=== PATIENT | male | born 1935 | race Caucasian/White ===

== ENCOUNTER 2017-09-14 05:59 | Day surgery (SDC) | payer MEDICARE, OTHER ==
[~2017-09-14] VITALS: Ht 175.3 cm; Wt 85.1 kg
[~2017-09-14 05:59] MED LIST: AMIO200 PO; APIX5TAB PO; ASPI81 PO; FLON0.053; IBUPPOW25 PO; KETO0.02 EACH EYE; LEXA10TA PO; LORA10TA7 PO; POLY99.0 OU; PROP80CA PO; TAB-TAB PO; VITA400C28 PO
[2017-09-14] MEDS ORDERED: IOHEXOL 350 MG/ML 100 ML BTL (for Cath Lab) OTHER ONE (06:00)
[2017-09-14] MEDS ORDERED: ASPIRIN 325 MG TAB PO SCH (06:30)
[2017-09-14] MEDS ORDERED: NS 1000P @30 MLS/HR (KVO) IV SCH (06:30)
[2017-09-14 06:36] VITALS: BP 148/91; PULSE 74; RESP 18; TEMP 97.6; O2SAT 100
[2017-09-14] MEDS ORDERED: APIX5TAB PO (06:52)
[2017-09-14] MEDS ORDERED: POTA-163 PO (06:52)
[2017-09-14] MEDS ORDERED: MULT-244 PO (06:52)
[2017-09-14] MEDS ORDERED: PROP80CA PO (06:52)
[2017-09-14] MEDS ORDERED: TAMS0.4C4 PO (06:52)
[2017-09-14] MEDS ORDERED: LEVI20TA PO (06:52)
[2017-09-14] MEDS ORDERED: KETO0.02 EACH EYE (06:52)
[2017-09-14] MEDS ORDERED: CLAR10CA3 PO (06:52)
[2017-09-14] MEDS ORDERED: ARTIDRO EACH EYE (06:52)
[2017-09-14] MEDS ORDERED: FURO40TA PO (06:52)
[2017-09-14] MEDS ORDERED: VITA2000 PO (06:52)
[2017-09-14] MEDS ORDERED: FLUT50SP EACH NARE (06:52)
[2017-09-14] MEDS ORDERED: LOSA50TA PO (06:52)
[2017-09-14 06:57] LABS: AUTOMATED NEUTROPHIL # 3.8 TH/MM3 (1.8-7.7); BASOPHIL % 0.5 % (0.0-2.0); EOSINOPHIL # 0.2 TH/MM3 (0-0.4); EOSINOPHIL % 2.7 % (0.0-4.0); HEMATOCRIT 45.9 % (39.0-51.0); HEMOGLOBIN 15.5 GM/DL (13.0-17.0); LYMPH % 23.5 % (9.0-44.0); LYMPHOCYTE # 1.4 TH/MM3 (1.0-4.8); MEAN CELL VOLUME 91.9 FL (80.0-100.0); MEAN CORPUSCULAR HEMOGLOBIN 31.1 PG (27.0-34.0); MEAN CORPUSCULAR HGB CONC 33.8 % (32.0-36.0); MEAN PLATELET VOLUME 8.5 FL (7.0-11.0); MONO % 9.5 % (0.0-8.0); MONOCYTE # 0.6 TH/MM3 (0-0.9); NEUT % 63.8 % (16.0-70.0); PLATELET COUNT 181 TH/MM3 (150-450); RED CELL DISTRIBUTION WIDTH 13.2 % (11.6-17.2)
[2017-09-14 07:09] LABS: PROTHROMBIN TIME - PATIENT 10.4 SEC (9.8-11.6)
[2017-09-14 07:11] LABS: BICARBONATE 27.6 MEQ/L (21.0-32.0); CALCIUM 8.8 MG/DL (8.5-10.1); CREATININE 1.52 MG/DL (0.60-1.30)
[2017-09-14] MEDS ORDERED: HEPARIN-NS/PF INJ 1,000 ML ONE (07:18)
[2017-09-14] MEDS ORDERED: MIDAZOLAM HCL 2 MG/2 ML VIAL ONE (07:30)
[2017-09-14] MEDS ORDERED: SODIUM CHLOR 0.9% 1000 ML INJ 1,000 ML IV SCH (08:34)
--- NOTE | 2017-09-14 08:35 | CATHPROC ---
[employer] HIS Report Study Information Study Number Admission Scheduled Start Study Start [id number] Sep 14 2017 5:59AM 09/14/2017 Sep 14 2017 6:49AM [place] Service Cardiac Catheterization Admit Source Facility Department Other [facility] - Beauty Director Physician and Clinical Staff Initial MD London, Edy Housekeeping Associate Nicola RN, Tk Recorder Carmela Le ,RT(R) Scrub Skyler, Emilia,BRICK SETTER OPERATOR TECH2 Procedures Performed Procedure Location (Site) Vessel Name Angiogram LV LV Ventricle Coronary Angiograms LCA Left Coronary Coronary Angiograms RCA Right Coronary Wire insertion Fem Art (right) Femoral Art Wire insertion Fem Vein (right) Femoral Vein Equipment Time Typesetting Machine Tender Description Size Mfg Part Number Used/Scraped [id number] 06:52 STEEL MALHOTRA SWAN CRISTOPHER CATHETER FR 7 Used *[id number] TRANSDUCER, TRUWAVE [id number] 06:52 STEEL MALHOTRA * Used W/STOCKCOCK *[id number] 534-676T *[id number] 534-617T *[id number] [id number] *[id number] PIGTAIL ANG. 145 INFINITI 534-652S CATHETER *[id number] 08:20 DAIG/[employer] ANGIOSEAL, FR6 VIP FR 6 Used *[id number] 06:52 Revolver BLANKET,WARM AIR CCL * Used *[id number] 06:52 Revolver PACK, CCL CUSTOM * Used *[id number] 06:52 [employer] PACER PEN, SKIN DUAL W/ RULER * Used *[id number] 07:43 [employer] MEDICAL SHEATH, FR6.5 PRELUDE 11CM FR 6.5 038ACT Used *[id number] 07:52 [employer] MEDICAL WIRE, 3MMJ .025 * Used *[id number] 06:52 [employer] MEDICAL WIRE, 3MMJ .035 180CM 180CM Used *[id number] 06:52 NAMIC MANIFOLD, 4 PORT * Used *[id number] 06:52 [employer] OMNIPAQUE, 350 MG, 150ML 150ML [id number] Used [id number] 06:52 TERUMO MEDICAL SHEATH, FR7 TERUMO (10CM) FR 7 Used *[id number] Equipment Model, Serial, Lot Number and Expiration Data Description Model Number Serial Number Lot Number Expiration Date ANGIOSEAL, FR6 [facility] [id number] 04-29-2018 History: Current Medications Medication Dosage/Unit Route Frequency Last Date/Time Taken Beta Nadia ELIQUIS History: Allergies Allergy Reaction Sulfa (Sulfonamide Antibiotics) SWELLING ragweed pollen ELLA Inhibitors History: Risk Factors Family History of Hypertension Dyslipidemia Previous ND Previous Heart Failure Premature CAD Yes No Yes No No Prior Valve Prior PCI Prior CABG Surgery No No No Cerebrovascular Peripheral Artery Chronic Lung On Dialysis Diabetes Disease Disease Disease No No No Yes No History: Stress Tests Stress or Imaging Studies Performed No History: Other Current Smoker No Labs Hgb (g/dl) Hct (%) WBC (l/cumm) Platelets (thousands) 11.60-17.00 35.00-51.00 4.00-11.00 150.00-450.00 15.5 45.9 6 181 Glucose (mg/dl) BUN (mg/dl) Creatinine (mg/dl) BUN:Creatinine (1:x) 74.00-106.00 7.00-18.00 0.50-1.30 10.00-20.00 90 29 1.5 19.3 Na (meq/l) K (meq/l) 136.00-145.00 3.50-5.10 141 4.2 INR (PTT:PT) 0.90-1.10 1 CPK-MB (ng/ML) 0.50-3.60 Not Drawn Medication Medication Total Dose (Bolus/Oral) Medication Total Dosage/Unit 1% XYLOCAINE 15 mL FENTANYL 50 mcg VERSED 1 mg Medications (Bolus/Oral) Medication Time Given Dosage/Unit Administered By Reason VERSED 09/14/2017 7:38:45 AM 1 mg Tk Petersen RN 1 mg VERSED given in lab by Tk Petersen RN in Left Antecubital via Peripheral IV. Ordered by Edy London. FENTANYL 09/14/2017 7:40:51 AM 50 mcg Tk Petersen RN 50 mcg FENTANYL given in lab by Tk Petersen RN in Left Antecubital via Peripheral IV. Ordered by Edy Somers. 1% XYLOCAINE 09/14/2017 7:41:50 AM 15 mL Edy London 15 mL 1% XYLOCAINE given in lab by Edy London in Right Groin via Subcutaneous. Ordered by Edy London. Medication (Drip) Medication Time Given Dosage/Unit Concentration/Unit Diluent (ml) Solution IV Solutions 09/14/2017 7:22:28 AM 50 mL (IV) NaCl .9 Patient arrived on IV Solutions in Left Antecubital via Peripheral IV. Pump/Drip Flow using NaCl .9. Initial Case Assessment Cardiovascular HR Rhythm NIBP Chest Pain 70 sr 143/83 0 Edema Present Skin color Skin None Normal Warm Dry Circulatory - Right Pulses Dorsalis Pedis Femoral 2 2 Scale (0,1,2,3,4,d) Circulatory - Left Pulses Dorsalis Pedis Femoral 2 2 Scale (0,1,2,3,4,d) Circulatory - Lower Extremities Color Lower Right Color Lower Left Normal Normal Neurological State Oriented to time-place- Alert Moves all extremities person Respiration - General Respiration Rate SpO2 (%) (B/min) 16 98 Final Case Assessment Cardiovascular HR Rhythm NIBP Chest Pain 70 sr 143/83 0 Edema Present Skin color Skin None Normal Warm Dry Circulatory - Right Pulses Dorsalis Pedis Femoral 2 2 Scale (0,1,2,3,4,d) Circulatory - Left Pulses Dorsalis Pedis Femoral 2 2 Scale (0,1,2,3,4,d) Circulatory - Lower Extremities Color Lower Right Color Lower Left Normal Normal Neurological State Oriented to time-place- Alert Moves all extremities person Respiration - General Respiration Rate SpO2 (%) (B/min) 16 98 Chronological Log Time Study Chronological Log 7:15:08 Patient arrived via Bed. 7:15:09 Patient Name, D.O.B, / Armband Verified By R.N. Vitals capture started with the following parameters, Patient=Adult, Interval=5 min, Initial Pr scjqxw=827 mmHg, 7:20:54 Deflation Rate=5 mmHg, Cuff placed on Left Arm 7:21:33 HR=76 bpm, BXQQ=298/83 mmhg, SpO2=99.0 %, Resp=14 B/min, Pain=0, Win=10, Roach=2 7:22:15 Consent signed by the physician and the patient and verified by the Beauty Director staff. 7:22:15 Pre-op and post- op instructions given; patient acknowledges understanding of instructions. 7:22:16 Verbal Stimulation=2 Physical Stimulation=2 Airway=2 Respiration=2 TOTAL=8. (0=absent, 1=li mited, 2=present) 7:22:18 Patient has been NPO for More than 6Hrs. 7:22:22 Skin Breakdown- none per patient 7:22: Patient Warmer Placed on the Table. 7:: Janel Prominences Protected 7:: A # 20 IV was noted in the Antecubital (left). Grade = 0 7:22:28 Patient arrived on IV Solutions in Left Antecubital via Peripheral IV. Pump/Drip Flow using NaCl .9. 7:22:29 History and physical on the chart or being dictated. Assessment: Initial Case, HR=70 BPM, Rhythm=sr, RQFW=139/83 mmhg, Chest Pain=0, Edema=None, Gallion r=Normal, Skin = Warm, Dry Right Pulses: Moris Ped=2, Femoral=2 Left Pulses: Moris Ped=2, Femoral=2 7:22:29 Lower Right Extremities: Color=Normal Lower Left Extremities: Color=Normal Neurological: State=Alert, Ox3, YOUNG Respiration: Resp=16 B/min, SpO2=98 % 7:23:31 Reference ECG taken 7:26:57 HR=71 bpm, GSFW=031/85 mmhg, SpO2=98.0 %, Resp=13 B/min, Pain=0, Win=10, Roach=2 7:28:46 Bilateral groins prepped with 2% chlorhexidine, and draped after a 3 minute waiting time. 7:30:00 MD arrived. 7:30:58 Pressure channel 1 zeroed. 7:31:34 HR=73 bpm, WJXH=758/83 mmhg, SpO2=98.0 %, Resp=20 B/min, Pain=0, Win=10, Roach=2 7:36:29 HR=76 bpm, NYXF=077/80 mmhg, SpO2=97.0 %, Resp=21 B/min, Pain=0, Win=10, Roach=2 Time Out. Correct patient, correct procedure, correct physician, labs, allergies, and equipment verified with systems testing laboratory technician 7:36:53 team present. Fire risk assesment completed (see hard stop sheet for coding). Time Out Concu rred by MD and individual staff in procedure. 7:38:45 1 mg VERSED given in lab by Tk Petersen RN in Left Antecubital via Peripheral IV. Ordered Edy Nance. 7:40:51 50 mcg FENTANYL given in lab by Tk Petersen RN in Left Antecubital via Peripheral IV. Order ed by Edy London. 7:41:19 Case Start 7:41:30 HR=73 bpm, IZOB=511/93 mmhg, SpO2=98.0 %, Resp=12 B/min, Pain=0, Win=10, Roach=2 7:41:50 15 mL 1% XYLOCAINE given in lab by Edy London in Right Groin via Subcutaneous. Ordered by Edy London. 7:42:18 Access site was Right Femoral Artery. 7:42:25 A wire was inserted via Fem Art (right). 7:42:27 A SHEATH, FR6.5 PRELUDE 11CM FR 6.5 was advanced into the Fem Art (right) using the Percutan eous technique. 7:44:10 Access site was Right Femoral Vein. 7:44:23 A wire was inserted via Fem Vein (right). 7:44:34 A SHEATH, FR7 TERUMO (10CM) FR 7 was advanced into the Fem Vein (right) using the Percutaneo us technique. A SWAN CRISTOPHER CATHETER FR 7 was advanced over a wire. OMNIPAQUE, 350 MG, 150ML 150ML was used for 7:45:31 injections. Recorded Pressure: RA, HR=74, Condition=Condition 1 7:46:21 (Right Atrium) RA 6 7:46:35 HR=75 bpm, HZHO=170/69 mmhg, SpO2=94.0 %, Resp=12 B/min, Pain=0, Win=10, Roach=2 Recorded Pressure: RV, HR=66, Condition=Condition 1 7:48:51 (Right Ventricle) RV 30/0/4 7:51:32 HR=72 bpm, TPGF=676/71 mmhg, SpO2=93.0 %, Resp=15 B/min, Pain=0, Win=10, Roach=2 7:52:23 A WIRE, 3MMJ .025 * was inserted via Fem Vein (right). 7:54:44 Wire removed 7:55:25 A WIRE, 3MMJ .025 * was inserted via Fem Vein (right). 7:56:31 HR=69 bpm, BZOJ=556/73 mmhg, SpO2=93.0 %, Resp=20 B/min, Pain=0, Win=10, Roach=2 7:58:18 Wire removed 8:01:32 HR=81 bpm, UVRM=423/73 mmhg, SpO2=94.0 %, Resp=23 B/min 8:02:06 A WIRE, 3MMJ .025 * was inserted via Fem Vein (right). 8:03:08 Wire removed Recorded Pressure: PCW, HR=72, Condition=Condition 1 8:04:18 (Pulmonary Capillary Wedge) PCW 23/32/19 Recorded Pressure: MPA, HR=66, Condition=Condition 1 8:04:43 (Main Pulmonary Artery) MPA 38/24 8:06:09 Saturation: Site=PA (Pulmonary Artery) , O2=68.5 %, Hgb=15.5 gm/dl, Condition=Condition 1. U sed in calculation. 8:06:33 HR=82 bpm, MWGU=699/83 mmhg, SpO2=95.0 %, Resp=35 B/min 8:07:10 Saturation: Site=RV (Right Ventricle) , O2=67.8 %, Hgb=15.5 gm/dl, Condition=Condition 1. Us ed in calculation. 8:07:47 Saturation: Site=RA (Right Atrium) , O2=67.3 %, Hgb=15.5 gm/dl, Condition=Condition 1. Used in calculation. 8:08:11 Saturation: Site=Ao (Aorta) , O2=97.5 %, Hgb=15.5 gm/dl, Condition=Condition 1. Used in calc ulation. 8:08:26 Rhodes Cristopher Catheter Removed A JL 4.5 INFINITI CATHETER FR 6 was advanced over a wire. OMNIPAQUE, 350 MG, 150ML 150ML was use d for 8:08:47 injections. Recorded Pressure: Ao, HR=67, Condition=Condition 1 8:09:46 (Aorta) Ao 134/63/94 8:09:59 Catheter was removed A JL 5.0 INFINITI CATHETER FR 6 was advanced over a wire. OMNIPAQUE, 350 MG, 150ML 150ML was use d for 8:10:39 injections. 8:11:36 HR=74 bpm, TOZP=362/74 mmhg, SpO2=96.0 %, Resp=14 B/min 8:11:55 The LCA was injected and visualized at various angles. OMNIPAQUE, 350 MG, 150ML 150ML used. 8:12:54 Catheter was removed A 3DRC INFINITI CATHETER FR 6 was advanced over a wire. OMNIPAQUE, 350 MG, 150ML 150ML was used for 8:13:01 injections. 8:14:52 The RCA was injected and visualized at various angles. OMNIPAQUE, 350 MG, 150ML 150ML used. 8:15:34 Catheter was removed A PIGTAIL ANG. 145 INFINITI CATHETER FR 6 was advanced over a wire. OMNIPAQUE, 350 MG, 150ML 150 ML was 8:15:47 used for injections. 8:16:35 JG=984 bpm, GEBX=945/81 mmhg, SpO2=96.0 %, Resp=15 B/min 8:17:45 The LV was injected at 12 cc/sec for a total of 36. OMNIPAQUE, 350 MG, 150ML 150ML used. Recorded Pressure: LV, HR=68, Condition=Condition 1 8:18:05 (Left Ventricle) LV 134/5/14 Recorded Pressure: LV, Ao, HR=79, Condition=Condition 1 8:18:26 (Left Ventricle) LV 105/9/13, (Aorta) Ao 97/51/71 8:18:50 Catheter was removed 8:19:55 An injection in the Fem Art (right) was made through the SHEATH, FR6.5 PRELUDE 11CM FR 6.5. 8:21:22 ANGIOSEAL, FR6 VIP FR 6 placement in the Fem Art (right) 8:21:32 HR=74 bpm, GHVJ=580/93 mmhg, SpO2=97.0 %, Resp=14 B/min 8:22:53 Case End (Physician broke scrub) Assessment: Final Case, HR=70 BPM, Rhythm=sr, CUVG=698/83 mmhg, Chest Pain=0, Edema=None, Color= Normal, Skin = Warm, Dry Right Pulses: Moris Ped=2, Femoral=2 Left Pulses: Moris Ped=2, Femoral=2 8:23:02 Lower Right Extremities: Color=Normal Lower Left Extremities: Color=Normal Neurological: State=Alert, Ox3, YOUNG Respiration: Resp=16 B/min, SpO2=98 % 8:23:07 Catheter(s) removed without difficulty 8:23:19 No case complications noted. 8:23:33 Bedside Report will be given. 8:23:37 A Left and Right Heart Cath was performed. 8:23:43 Venous Sheath removed; pressure applied to access site. 8:26:31 HR=76 bpm, XSJP=448/88 mmhg, SpO2=97.0 %, Resp=12 B/min 8:31:36 XQCE=314/81 mmhg 8:34:17 Patient moved to stretcher End Study - Contrast Media Used In Study Contrast Total Opened (mL) Total Used (mL) Total Wasted (mL) Omnipaque 60 60 0 End Study - Maximum Contrast Load Max Contrast Load (mL) 283.6 End Study - Radiation Exposure Fluoro Time (minutes) 16.6 End Study - Patient Disposition Complications Transferred To Interventional Outcome No Telemetry Bed No attempt made
[2017-09-14] MEDS ORDERED: MISC INFORMATION XX ONE (08:45)
[2017-09-14] MEDS ORDERED: METOCLOPRAMIDE HCL 10 MG/2 ML VIAL IV PUSH PRN (08:45)
[2017-09-14] MEDS ORDERED: BACITRACIN OINT 0.9 GM PKT TOP ONE (08:45)
[2017-09-14] MEDS ORDERED: SODIUM CHLORIDE 0.9% FLUSH 10 ML FLUSH IV FLUSH PRN (08:45)
[2017-09-14] MEDS ORDERED: SODIUM CHLORIDE 0.9% FLUSH 10 ML FLUSH IV FLUSH SCH (09:00)
--- NOTE | 2017-09-14 09:03 | MA ---
cc: Edy London MD DATE: 09/14/2017 PROCEDURES PERFORMED: Left heart catheterization, right heart catheterization, left ventriculography, coronary angiography, right femoral arterial angiography with Angio-Seal placement. DESCRIPTION OF PROCEDURE: The patient was brought to the cardiac catheterization lab in a fasting state. I gave him 1 mg of Versed and 50 mcg of IV fentanyl before we start of the procedure. Using 1 percent lidocaine for local anesthesia, 6-1/2-[place] sheaths were inserted in the right femoral artery and right femoral vein requiring only a single stick each. Right heart catheterization was performed using a [place]rah catheter. I had a great deal of difficulty getting from the right ventricle into the pulmonary artery. The catheter very easily went into the coronary sinus several occasions, but this was recognized and the catheter pulled back. Utilizing an 0.021 wire and with multiple tries, I was eventually able to get into the pulmonary artery and get a wedge recording, as well as a PA recording. Sats were obtained. Next, coronary angiography was completed. I used a left 5 Mary Jo for the left coronary artery since a left 4.5 was little small and I used a 3DRC for the right coronary artery. At that point, we had used very little contrast, so I went ahead and did an LV gram with an angled pigtail catheter followed by a pullback. I used a few mL then to visualize the sheath in the right femoral artery and deployed Angio-Seal with good hemostasis. The venous sheath was pulled manually. There were no complications. FINDINGS: HEMODYNAMICS: Right atrial pressure was 6/7 with a mean of 5 and a saturation of 67.3%. Right ventricular pressure was 30/0 with an end diastolic pressure of 4 and a saturation of 67.8%. Pulmonary artery pressure was 38/14 with a mean of 24 and a saturation of 68.5%. Pulmonary capillary wedge pressure was a mean of 19 with V waves of 32 mm, which were very marked. Left ventricular pressure was 105/9 with an end diastolic pressure of 13. Aortic pressure was 97/51 with a mean of 71. Femoral artery saturation was 97.5%. Cardiac output by Ryanne was 4.1 liters per minute. LEFT VENTRICULOGRAPHY: Left ventriculography shows an ejection fraction about 50%. Angiographically, there is at least 3+ mitral regurgitation with a dilated left atrium. CORONARY ANGIOGRAPHY: Coronary circulation is right dominant. 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 CONCLUSIONS: 1. 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 2. LV ejection fraction of 50 percent. 3. Normal coronary arteries. 4. Right heart catheterization notable for large V waves on the wedge tracing consistent with the mitral regurgitation seen. RECOMMENDATIONS: The patient will need to have either mitral valve repair/replacement or percutaneous MitraClip. His daughter lives near [facility] and my understanding is he plans to go there to have his valve done. Edy London MD VEKady/DL , 08:32 AM , 09:01 AM
--- NOTE | 2017-09-14 22:57 | EKG ---
Date Performed: 09/14/2017 Time Performed: 06:48:12 PTAGE: 81 years EKG: Atrial fibrillation. Inferior T wave changes are nonspecific Abnormal ECG PREVIOUS TRACING : 11/17/2012 03.44 DOCTOR: Clarke Arenas Interpretating Date/Time 09/14/2017 22:52:39
== END 2017-09-14 13:01 | disposition home or self-care (01) ==
LOC: HDOC 05:59 → HDIC 05:59 → HDOC 13:01
PROVIDERS: ATTEND Internal Medicine Cardiovascular Disease
DX: I25.10 Atherosclerotic heart disease of native coronary artery without angina pectoris (principal); I10 Essential (primary) hypertension; I35.1 Nonrheumatic aortic (valve) insufficiency; I36.1 Nonrheumatic tricuspid (valve) insufficiency; Z79.01 Long term (current) use of anticoagulants
CPT/HCPCS: 80048; 82810; 85025; 85610; 85730; 93005; 93460; 99152; 99153; C1760; C1769; C1893; G0269; J1644; J2250; J3010; Q9967